=== PATIENT | female | born 1985 | race Caucasian/White ===

== ENCOUNTER 2018-07-10 13:55 | Inpatient (IN) | payer OTHER ==
[~2018-07-10] VITALS: Ht 177.8 cm; Wt 88.6 kg
[2018-07-10] VITALS (42 sets, daily range): BP systolic 101–128; BP diastolic 56–85
[~2018-07-10 13:55] MED LIST: ACHYD1T PO; DOCU100C37 PO; IBP800T PO; IBUP-1780 PO; OXYC-465 PO; PREN1TAB39 PO; PRM25T PO; PROG200C6 VG
[2018-07-10] MEDS ORDERED: AMPICILLIN 2,000 MG/20 ML (IV USE) ONE (14:26)
[2018-07-10] MEDS ORDERED: BETAMETHASONE ACE/NA PHOS 6 MG/ML (CELESTONE SOLUSPAN) ONE (14:26)
[2018-07-10] MEDS ORDERED: NS (IVPB) 0 ML ONE (14:27)
[2018-07-10] MEDS ORDERED: NS (IVPB) 50 ML ONE (14:40)
[2018-07-10 14:42] LABS: BASOPHILS % (AUTO) 0 % (0-10); EOSINOPHILS # (AUTO) 0.1 10^3/uL (0.0-0.3); EOSINOPHILS % (AUTO) 1 % (0-10); HEMATOCRIT 35 % (35-52); HEMOGLOBIN 11.3 G/DL (11.5-16.0); LYMPHOCYTES # (AUTO) 2.1 X 10^3 (1.0-4.0); LYMPHOCYTES % (AUTO) 24 % (12-44); MEAN CORPUSCULAR HEMOGLOBIN 28 PG (25-34); MEAN CORPUSCULAR HGB CONC 33 G/DL (32-36); MEAN CORPUSCULAR VOLUME 85 FL (80-99); MEAN PLATELET VOLUME 11.2 FL (7.4-10.4); MONOCYTES # (AUTO) 0.8 X 10^3 (0.0-1.0); MONOCYTES % (AUTO) 10 % (0-12); NEUTROPHILS # (AUTO) 5.7 X 10^3 (1.8-7.8); NEUTROPHILS % (AUTO) 66 % (42-75); PLATELET COUNT 185 10^3/uL (130-400); RED BLOOD COUNT 4.07 10^6/uL (4.35-5.85); RED CELL DISTRIBUTION WIDTH 13.9 % (10.0-14.5); WHITE BLOOD COUNT 8.7 10^3/uL (4.3-11.0)
[2018-07-10] MEDS ORDERED: AMPICILLIN FOR IV USE 2,000 MG in NS (IVPB) 50 ML IV ONE (14:45)
[2018-07-10] MEDS ORDERED: BETAMETHASONE ACE/NA PHOS 6 MG/ML (CELESTONE SOLUSPAN) IM ONE (14:45)
--- OUTSIDE RECORDS SUMMARY | 2018-07-10 14:46 | XMS REPORT | Continuity of Care Document ---
Demographics Preferred Language Unknown Marital Status Unknown Druze Affiliation Unknown Race Unknown Ethnic Group Unknown Author Author [facility] Address Unknown Phone Unavailable Allergies Active Description Code Type Severity Reaction Onset Reported/Identified Relationship to Patient Clinical Status Yes No Known Drug Allergies [id number] Drug Allergy Unknown N/A 09/27/2011 Medications There is no data. Problems Date Dx Coded Attending Type Code Diagnosis Diagnosed By 09/29/2011 Ot 641.21 ROSA ELENA SEPAR PLACEN-DELIV 09/29/2011 Ot 644.21 EARLY ONSET DELIVERY-DEL 09/29/2011 Ot 657.01 POLYHYDRAMNIOS,DEL W OR W/O MENTN ANTEPA 09/29/2011 Ot 660.41 SHOULDER DYSTOCIA-DELIV 09/29/2011 Ot V06.1 DIPHTHERIA- TETANUS-PERTUSSIS, COMBINED [ 09/29/2011 Ot V27.0 DELIVER- SINGLE LIVEBORN 08/13/2012 V04.81 FLU DX (3 YRS AND ABOVE, IM) 08/18/2012 Ot 276.50 VOLUME DEPLETION, UNSPECIFIED 08/18/2012 Ot 558.9 NONINF GASTROENTERIT NEC 08/18/2012 Ot 787.03 VOMITING ALONE 06/16/2013 SHANNA MARIEE MD Ot 641.21 ROSA ELENA SEPAR PLACEN-DELIV 06/16/2013 SHANNA MARIEE MD Ot 644.21 EARLY ONSET DELIVERY-DEL 06/16/2013 SHANNA MARIEE MD Ot V27.0 DELIVER-SINGLE LIVEBORN 03/20/2016 Ot 786.50 CHEST PAIN NOS 03/21/2016 SHANNA MARIEE MD Ot O60.03 LABOR WITHOUT DELIVERY, THIRD TR 03/21/2016 SHANNA MARIEE MD, Ot Z3A.34 34 WEEKS GESTATION OF 03/21/2016 Ot 786.50 CHEST PAIN NOS 03/21/2016 SHANNA MARIEE MD Ot O47.9 FALSE LABOR, UNSPECIFIED 03/21/2016 SHANNA MARIEE MD, Ot Z3A.00 WEEKS OF GESTATION OF NOT SPEC 03/24/2016 Ot 786.50 CHEST PAIN NOS 03/24/2016 SHANNA MARIEE MD, Ot O60.03 LABOR WITHOUT DELIVERY, THIRD TR 03/24/2016 SHANNA MARIEE MD, Ot Z3A.35 35 WEEKS GESTATION OF 03/25/2016 SHANNA MARIEE MD, Ot O60.03 LABOR WITHOUT DELIVERY, THIRD TR 03/25/2016 SHANNA MARIEE MD, Ot Z3A.35 35 WEEKS GESTATION OF 04/05/2016 SHANNA MARIEE MD, Ot O60.14X0 LABOR THIRD TRI W DELIVE 04/05/2016 SHANNA MARIEE MD, Ot O99.820 STREPTOCOCCUS B CARRIER STATE COMPLICATI 04/05/2016 SHANNA MARIEE MD, Ot Z23 ENCOUNTER FOR IMMUNIZATION 04/05/2016 SHANNA MARIEE MD, Ot Z37.0 SINGLE LIVE 04/05/2016 SHANNA MARIEE MD, Ot Z3A.36 36 WEEKS GESTATION OF 04/06/2016 SHANNA MARIEE MD, Ot O60.03 LABOR WITHOUT DELIVERY, THIRD TR 04/06/2016 SHANNA MARIEE MD, Ot Z3A.34 34 WEEKS GESTATION OF 04/08/2016 Ot 786.50 CHEST PAIN NOS Procedures Code Description Performed By Performed On 72.1 09/27/2011 73.59 MANUAL ASSIST DELIV NEC 06/16/2013 [id number] 04/03/2016 Results Test Result Range Complete blood count (CBC) with automated white blood cell (WBC) differential - 04/03/16 03:45 Blood leukocytes automated count (number/volume) 10.4 10*3/uL 4.3-11.0 Blood erythrocytes automated count (number/volume) 4.11 10*6/uL 4.35-5.85 Venous blood hemoglobin measurement (mass/volume) 11.6 g/dL 11.5-16.0 Blood hematocrit (volume fraction) 35 % 35-52 Automated erythrocyte mean corpuscular volume 85 [foz_us] 80-99 Automated erythrocyte mean corpuscular hemoglobin (mass per erythrocyte) 28 pg 25-34 Automated erythrocyte mean corpuscular hemoglobin concentration measurement ( mass/volume) 33 g/dL 32-36 Automated erythrocyte distribution width ratio 14.2 % 10.0-14.5 Automated blood platelet count (count/volume) 184 10*3/uL 130-400 Automated blood platelet mean volume measurement 11.0 [foz_us] 7.4-10.4 Automated blood neutrophils/100 leukocytes 66 % 42-75 Automated blood lymphocytes/100 leukocytes 24 % 12-44 Blood monocytes/100 leukocytes 10 % 0-12 Automated blood eosinophils/100 leukocytes 1 % 0-10 Automated blood basophils/100 leukocytes 0 % 0-10 Blood neutrophils automated count (number/volume) 6.8 10*3 1.8-7.8 Blood lymphocytes automated count (number/volume) 2.5 10*3 1.0-4.0 Blood monocytes automated count (number/volume) 1.0 10*3 0.0-1.0 Automated eosinophil count 0.1 10*3/uL 0.0-0.3 Automated blood basophil count (count/volume) 0.0 10*3/uL 0.0-0.1 Blood type T Indirect antibody screen panel - 04/03/16 03:45 ABO+Rh group AP NRG Transfusion band number [id number] [facility] Blood group antibody screen NEGATIVE [facility] Complete blood count (CBC) with automated white blood cell (WBC) differential - 07/10/18 14:17 Blood leukocytes automated count (number/volume) 8.7 10*3/uL 4.3-11.0 Blood erythrocytes automated count (number/volume) 4.07 10*6/uL 4.35-5.85 Venous blood hemoglobin measurement (mass/volume) 11.3 g/dL 11.5-16.0 Blood hematocrit (volume fraction) 35 % 35-52 Automated erythrocyte mean corpuscular volume 85 [foz_us] 80-99 Automated erythrocyte mean corpuscular hemoglobin (mass per erythrocyte) 28 pg 25-34 Automated erythrocyte mean corpuscular hemoglobin concentration measurement ( mass/volume) 33 g/dL 32-36 Automated erythrocyte distribution width ratio 13.9 % 10.0-14.5 Automated blood platelet count (count/volume) 185 10*3/uL 130-400 Automated blood platelet mean volume measurement 11.2 [foz_us] 7.4-10.4 Automated blood neutrophils/100 leukocytes 66 % 42-75 Automated blood lymphocytes/100 leukocytes 24 % 12-44 Blood monocytes/100 leukocytes 10 % 0-12 Automated blood eosinophils/100 leukocytes 1 % 0-10 Automated blood basophils/100 leukocytes 0 % 0-10 Blood neutrophils automated count (number/volume) 5.7 10*3 1.8-7.8 Blood lymphocytes automated count (number/volume) 2.1 10*3 1.0-4.0 Blood monocytes automated count (number/volume) 0.8 10*3 0.0-1.0 Automated eosinophil count 0.1 10*3/uL 0.0-0.3 Automated blood basophil count (count/volume) 0.0 10*3/uL 0.0-0.1 Encounters ACCT No. Visit Date/Time Discharge Status Pt. Type Provider Facility Loc./Unit Complaint [id number] 08/13/2012 11:10:00 08/13/2012 23:59:59 CLS Outpatient [id number] 08/13/2012 11:39:49 RECURRING [id number] 04/03/2016 03:05:00 04/05/2016 11:40:00 DIS Inpatient SHANNA MARIEE MD [facility] LDRP LABOR [id number] 03/24/2016 00:38:00 03/24/2016 08:22:00 DIS Outpatient SHANNA MARIEE MD [facility] WSo CONTRACTIONS [id number] 03/21/2016 22:11:00 03/21/2016 22:26:00 DIS [id number] 03/20/2016 18:00:00 03/21/2016 07:50:00 DIS Outpatient SHANNA MARIEE MD [facility] WSo CONTRACTIONS [id number] 06/15/2013 21:29:00 06/16/2013 11:40:00 DIS Inpatient SHANNA MARIEE MD [facility] WS LABOR [id number] 07/10/2018 14:43:00 Document Registration [id number] 08/18/2012 19:16:00 Document Registration [id number] 09/30/2011 12:26:00 Document Registration [id number] 09/27/2011 16:06:00 Document Registration
[2018-07-10] MEDS: D5 LR IV SOLUTION 1,000 ML IV SCH ×2 (14:50→18:55)
[2018-07-10] MEDS ORDERED: BUPIVACAINE 0.25% 30 ML (SENSORCAINE) VIAL ONE (14:55)
[2018-07-10] MEDS ORDERED: fentaNYL INJECTION 100 MCG/2 ML AMP ONE (14:55)
[2018-07-10] MEDS ORDERED: SUFENTA 0.6MCG/ML BUPIVA 0.125 100 ML ONE (14:58)
[2018-07-10] MEDS ORDERED: LACTATED RINGERS 1,000 ML IV ONE (15:22)
[2018-07-10] MEDS ORDERED: NALOXONE 0.4 MG/ML 1 ML (NARCAN) VIAL IV PRN (15:30)
[2018-07-10] MEDS ORDERED: CATHETER FLUSH 10 ML SYR IV PRN (15:30)
[2018-07-10] MEDS ORDERED: EPIDURAL (SUFENTA 0.6MCG/ML BUPIVA 0.125%) 100 ML BAG EPI SCH (15:30)
[2018-07-10] MEDS ORDERED: OXYTOCIN/NORMAL SALINE 500 ML IV SCH ×2 (18:04→22:46)
[2018-07-10] MEDS ORDERED: AMPICILLIN FOR IV USE 1,000 MG in NS (IVPB) 50 ML IV SCH (19:00)
[2018-07-10] MEDS ORDERED: OXYC1TAB87 PO (20:52)
[2018-07-10] MEDS ORDERED: IBUP-1780 PO (20:52)
[2018-07-10] MEDS ORDERED: DOCU100C37 PO (20:52)
--- NOTE | 2018-07-10 20:53 | Discharge Instructions ---
Discharge Instructions Discharge Medications New, Converted or Re-Newed RX: RX on Chart Patient Instructions Patient Instructions: as directed Return to The Hospital For: As directed Activity & Diet Discharge Diet: No Restrictions Activity as Tolerated: No Orders-Post D/C & Referrals Follow Up Appt: Call to make follow up appt. for patient in 4 weeks. Activity Per routine post vaginal delivery instructions. Diet as tolerated Patient may shower or tub bathe as desired. SHANNA MARIEE MD Jul 10, 2018 8:53 pm
--- NOTE | 2018-07-10 20:57 | History & Physical ---
History and Physical Date Seen by Provider: Jul 10, 2018 Time Seen by Provider: 17:00 This patient is a 32-year-old white female with a due date of putting her at 35-6/7 weeks' gestation. She presented to clinic with complaint of contractions pain and pressure. She was found to be dilated 5 cm and swapnil every 2-3 minutes. She has a history of deliveries 3 with none of her pregnancies making it beyond 36 weeks gestation. She has a history of rapid labors. She was sent to labor and delivery for management. A GBS culture done on July 04, 2018 was negative. Allergies are none Medications are vitamins and Prometrium/Crinone Medical surgical social family and obstetric histories are per the antepartum record HEENT exam is normal Neck is supple no lymphadenopathy and no thyromegaly Abdomen is gravid soft nontender nondistended Extreme show clubbing or cyanosis. There is no Homans sign. Pelvic exam in clinic showed a cervix 5+ and Ms. dilated -2 station vertex presentation effaced 50 percent or more monitor in my clinic showed contractions every 2-3 minutes with a normal heart rate pattern Laboratory Tests 07/10/18 14:17 Assessment and plan labor at 36 weeks' gestation in a patient with a history of rapid labors and 3 previous deliveries. In spite of her GBS negative culture she was started empirically on ampicillin. She was given a single dose of betamethasone 12 mg IM due to her labor. Anticipation is for vaginal delivery. labor at 36 weeks gestation Allergies and Home Medications Allergies Coded Allergies: No Known Drug Allergies (Unverified , 09/27/11) Home Medications Docusate Sodium 100 Mg Capsule, 100 MG PO BID Prescribed by: SHANNA CRUZ on 07/10/182051 Ibuprofen 800 Mg Tablet, 800 MG PO Q6H Prescribed by: SHANNA CRUZ on 07/10/182051 Oxycodone HCl/Acetaminophen 1 Each Tablet, 1-2 TAB PO Q6H PRN for PAIN Prescribed by: SHANNA CRUZ on 04/04/16 1038 Oxycodone HCl/Acetaminophen 1 Each Tablet, 1 EACH PO Q4H PRN for PAIN-MODERATE Prescribed by: SHANNA CRUZ on 07/10/182051 Vits W-Ca,Fe,Fa(<1MG) 1 Each Tablet, 1 EACH PO DAILY, (Reported) Patient Home Medication List Home Medication List Reviewed: Yes Clinical Quality Measures DVT/VTE Risk/Contraindication: Risk Factor Score Per Nursin RFS Level Per Nursing on Admit: 1=Low/No VTE PPX SHANNA MARIEE MD Jul 10, 2018 8:57 pm
[2018-07-10] MEDS ORDERED: LIDOCAINE/EPI 2% 1:200,00 (XYLOCAINE) 10 ML VIAL ONE (21:35)
[2018-07-10] MEDS ORDERED: CATHETER FLUSH 10 ML SYR IV SCH (22:00)
[2018-07-10] MEDS: KETOROLAC 30 MG/ML VIAL IV SCH (22:59)
[2018-07-10] MEDS ORDERED: TETANUS,DIPTH,PERTUSS P/F (BOOSTRIX) 0.5 ML VIAL IM ONE (23:00)
[2018-07-10] MEDS ORDERED: oxyCODONE/APAP 5/325MG (PERCOCET 5) TABLET PO PRN (23:00)
[2018-07-10] MEDS ORDERED: BENZOCAINE/MENTHOL (DERMOPLAST) 56 ML CAN TP PRN (23:00)
[2018-07-10] MEDS ORDERED: ONDANSETRON 4 MG/2 ML (SDV) Z0FRAN IVP PRN (23:00)
[2018-07-11 04:00] VITALS: BP 110/66
--- NOTE | 2018-07-11 04:07 | OPERATIVE REPORT ---
DATE OF SERVICE: 07/10/2018 DELIVERY NOTE The patient delivered by spontaneous vaginal delivery a viable female with Apgars of 6, 7 and 8 at 1, 5 AND 10 minutes respectively, blood gas pH of 7.28, weight of 7 lbs. 14 oz. time is 2142. Infant delivered over an intact perineum with less than 3 pushes. There was a shoulder cord. It was easily slipped over the shoulder. The infant was bulb suctioned on delivery of the head and again on completion of delivery. Umbilical cord was doubly clamped and father cut the cord. The baby was passed to mom's abdomen and then taken shortly to the warmer for resuscitation. The placenta delivered fairly promptly spontaneously [place]. It was a battledore placenta with a 3-vessel cord. The placenta was sent to pathology for permanent section. The cervix, vagina, rectum and perineum were examined and found intact. Estimated blood loss for the delivery was around 150 to 200 mL. The patient tolerated the delivery well and recovered in the LDR. The baby remained in the LDR for recovery with the mom. Job ID: [id number] DocumentID: [id number] Dictated Date: 07/10/2018 21:59:56 Flight Follower Date: 07/11/2018 04:06:15 Dictated By: SHANNA MARIEE MD MTDD
[2018-07-11] MEDS: KETOROLAC 30 MG/ML VIAL IV SCH (05:56)
--- NOTE | 2018-07-11 06:54 | Anesthesia-Regional Post-Op ---
Regional Patient Condition Mental Status: Alert, Oriented x3 Circulation: Same as Pre-Op Headache: Absent Sensation: Full Recovery Motor Block: Absent Post Op Complications Complications None Follow Up Care/Instructions Patient Instructions None needed. Anesthesia/Patient Condition Patient is doing well, no complaints, stable vital signs, no apparent adverse anesthesia problems. No complications reported per nursing. D/C home per [facility] Criteria: Yes LUKE JAIME CRNA Jul 11, 2018 06:54
[2018-07-11] MEDS: DOCUSATE SODIUM 100 MG (COLACE) CAP PO SCH ×2 (07:52→20:44)
[2018-07-11 07:54] VITALS: BP 117/68
--- NOTE | 2018-07-11 08:00 | Progress Note-Standard ---
Standard Progress Note Progress Notes/Assess & Plan Date Seen by a Provider: Jul 11, 2018 Time Seen by a Provider: 07:59 Progress/Assessment & Plan This patient is without complaint. She is ambulating, voiding, tolerating oral intake well, patient has good pain control. Patient denies headache, denies shortness of breath, denies nausea vomiting, denies chest pain. Vital signs are stable. Patient is afebrile. Vital Signs 07/11/18 04:00 Temp 98.7 Pulse 60 Resp 16 B/P (MAP) 110/66 (81) Pulse Ox 97 O2 Delivery Room Air Fundus is firm below the umbilicus and nontender. Extremities show no clubbing cyanosis. There is no Homans sign. Assessment and plan day number 1 status post spontaneous vaginal delivery at 36 weeks gestation. Patient is doing well. Plan is for routine convalescence care today and likely discharge tomorrow SHANNA MARIEE MD Jul 11, 2018 8:00 am
[2018-07-11 11:31] VITALS: BP 114/70
[2018-07-11] MEDS ORDERED: IBUPROFEN 800 MG (MOTRIN) TAB PO ONE ×2 (12:37→18:34)
[2018-07-11 16:00] VITALS: BP 112/69
[2018-07-11 20:40] VITALS: BP 105/61
[2018-07-11] MEDS: IBUPROFEN 800 MG (MOTRIN) TAB PO SCH (23:53)
[2018-07-12 02:15] VITALS: BP 107/63
[2018-07-12] MEDS: IBUPROFEN 800 MG (MOTRIN) TAB PO SCH ×2 (05:39→13:10)
--- NOTE | 2018-07-12 07:53 | Progress Note-Standard ---
Standard Progress Note Progress Notes/Assess & Plan Date Seen by a Provider: Jul 12, 2018 Time Seen by a Provider: 07:52 Progress/Assessment & Plan This patient is without complaint. She is ambulating, voiding, tolerating oral intake well, patient has good pain control. Patient denies headache, denies shortness of breath, denies nausea vomiting, denies chest pain. Vital signs are stable. Patient is afebrile. Vital Signs 07/11/18 04:00 Temp 98.7 Pulse 60 Resp 16 B/P (MAP) 110/66 (81) Pulse Ox 97 O2 Delivery Room Air Fundus is firm below the umbilicus and nontender. Extremities show no clubbing cyanosis. There is no Homans sign. Assessment and plan day number 1 status post spontaneous vaginal delivery at 36 weeks gestation. Patient is doing well. Plan is for routine convalescence care today and likely discharge tomorrow July 12, 2018 Patient is without complaint. She is ambulating, voiding, tolerating oral intake well has good pain control. Patient is ready for discharge. Vital Signs 07/12/18 02:15 Temp 96.7 Pulse 76 Resp 16 B/P (MAP) 107/63 (78) Pulse Ox 96 O2 Delivery Room Air Vital signs are stable. Patient is afebrile. Fundus is firm below the umbilicus and nontender. Extremities show no clubbing cyanosis. There is no Homans sign. Assessment and plan day number 2 status post spontaneous vaginal delivery at 36 weeks gestation. Plan is for discharge home with follow- up in clinic. If baby is not released then patient may room in Final Diagnosis spontaneous vaginal delivery at 36 weeks gestation SHANNA MARIEE MD Jul 12, 2018 7:53 am
[2018-07-12 13:06] VITALS: BP 115/81
[2018-07-12] MEDS: DOCUSATE SODIUM 100 MG (COLACE) CAP PO SCH (13:10)
[2018-07-12] MEDS ORDERED: TETANUS,DIPTH,PERTUSS P/F (BOOSTRIX) 0.5 ML VIAL IM ONE (14:33)
== END 2018-07-12 14:50 | disposition home or self-care (01) | DRG 807 ==
LOC: LDRP 13:55
PROVIDERS: ADMIT Obstetrics & Gynecology; ATTEND Obstetrics & Gynecology
PROC: 10E0XZZ Delivery of Products of Conception, External Approach (ICD-10-PCS; principal; 2018-07-10)
DX: O60.14X0 Preterm labor third trimester with preterm delivery third trimester, not applicable or unspecified (principal); O69.2XX0 Labor and delivery complicated by other cord entanglement, with compression, not applicable or unspecified; O43.193 Other malformation of placenta, third trimester; Z3A.36 36 weeks gestation of pregnancy; Z37.0 Single live birth; Z23 Encounter for immunization
CPT/HCPCS: 36415; 82962; 85025; 86850; 86900; 86901; 88307; 90715

== ENCOUNTER → 2020-12-25 | Outpatient (CLI) | payer BC, OTHER ==
[~2020-12-25] MED LIST changes: -OXYC-465 PO; +OXYC-556 PO; +OXYC1TAB87 PO; +PROG200C10 VG; -PROG200C6 VG
--- NOTE | 2020-12-25 12:20 | Diagnostic Imaging Report ---
INDICATION: Routine screening. No prior mammograms are available for comparison. This a baseline study. 2-D and 3-D bilateral screening mammography was performed with CAD. No mass or malignant appearing microcalcifications are identified. There are benign calcifications present. Axillae are unremarkable. IMPRESSION: BI-RADS Category 2 No mammographic features suspicious for malignancy are identified. ACR BI-RADS Category 2: Benign findings. Result letter will be mailed to the patient. Note: At least 10% of breast cancer is not imaged by mammography. Dictated by: Dictated on workstation # [id number]
== END ==
LOC: RAD 07:30
PROVIDERS: ATTEND Family Medicine
DX: Z12.31 Encounter for screening mammogram for malignant neoplasm of breast (principal)
CPT/HCPCS: 77063; 77067

== ENCOUNTER 2021-04-22 05:31 | Outpatient (CLI) | payer BC ==
[~2021-04-22] VITALS: Ht 177.8 cm; Wt 72.7 kg
== END 2021-04-22 10:24 | disposition home or self-care (01) ==
LOC: PREOP 05:31
PROVIDERS: ATTEND Obstetrics & Gynecology
DX: Z01.818 Encounter for other preprocedural examination (principal)

== ENCOUNTER 2021-04-29 11:39 | Day surgery (SDC) | payer BC ==
[2021-04-29] VITALS (10 sets, daily range): BP systolic 96–120; BP diastolic 59–78
[~2021-04-29] VITALS: Ht 177 cm; Wt 72.7 kg
[2021-04-29] MEDS ORDERED: ceFAZolin INJECTION 1,000 MG in WATER (STERILE) FOR INJECTION 10 ML IV ONE (11:45)
[2021-04-29] MEDS ORDERED: LACTATED RINGERS 1,000 ML IV PRN (11:45)
[2021-04-29] MEDS ORDERED: ESTRADIOL VAGINAL CREAM 42.5 GM (ESTRACE) VG ONE (11:46)
[2021-04-29] MEDS ORDERED: LIDOCAINE/EPI 1%-1:100,000 (XYLOCAINE) 20ML ONE (11:46)
[2021-04-29] MEDS ORDERED: ONDANSETRON 4 MG/2 ML (SDV) Z0FRAN ONE ×2 (12:10→17:08)
[2021-04-29] MEDS ORDERED: proPOfol 200 MG/20 ML (DIPRIVAN) VIAL IV ONE (12:10)
[2021-04-29] MEDS ORDERED: LIDOCAINE PF 2% 5 ML (XYLOCAINE) VIAL ONE (12:10)
[2021-04-29] MEDS ORDERED: fentaNYL INJ 100 MCG/2 ML AMP ONE ×2 (12:10→17:07)
[2021-04-29] MEDS ORDERED: MIDAZOLAM 2 MG/2 ML (VERSED) VIAL ONE (12:11)
[2021-04-29 12:29] LABS: BASOPHILS % (AUTO) 1 % (0-10); EOSINOPHILS # (AUTO) 0.1 10^3/uL (0.0-0.3); EOSINOPHILS % (AUTO) 2 % (0-10); HEMATOCRIT 38 % (35-52); HEMOGLOBIN 12.2 g/dL (11.5-16.0); LYMPHOCYTES # (AUTO) 1.6 10^3/uL (1.0-4.0); LYMPHOCYTES % (AUTO) 31 % (12-44); MEAN CORPUSCULAR HEMOGLOBIN 28 pg (25-34); MEAN CORPUSCULAR HGB CONC 32 g/dL (32-36); MEAN CORPUSCULAR VOLUME 86 fL (80-99); MEAN PLATELET VOLUME 10.4 fL (9.0-12.2); MONOCYTES # (AUTO) 0.4 10^3/uL (0.0-1.0); MONOCYTES % (AUTO) 8 % (0-12); NEUTROPHILS % (AUTO) 59 % (42-75); PLATELET COUNT 191 10^3/uL (130-400); WHITE BLOOD COUNT 5.2 10^3/uL (4.3-11.0)
[2021-04-29] MEDS ORDERED: NEOSTIGMINE 3 MG/3 ML VIAL ONE (14:13)
[2021-04-29] MEDS ORDERED: ROCURONIUM 10 MG/ML 5 ML SYRINGE IV ONE (14:13)
[2021-04-29] MEDS ORDERED: GLYCOPYRROLATE 0.2 MG/ML (ROBINUL) 2 ML VIAL ONE (14:13)
[2021-04-29] MEDS ORDERED: HYDROmorphone 2 MG/ML VIAL (DILAUDID) ONE (14:47)
[2021-04-29] MEDS ORDERED: SEVOFLURANE (ULTANE) 15 ML INHAL SOLN ONE (15:07)
[2021-04-29] MEDS ORDERED: KETOROLAC 30 MG/ML VIAL ONE ×2 (15:23→20:54)
[2021-04-29] MEDS ORDERED: morphine INJ 10 MG/ML 1ML (SYR OR VIAL) IVP ONE (15:45)
[2021-04-29] MEDS ORDERED: ONDANSETRON 4 MG/2 ML (SDV) Z0FRAN IVP PRN ×3 (15:45→16:00)
[2021-04-29] MEDS ORDERED: PROMETHAZINE INJ 25 MG/ML (PHENERGAN) AMP IVP ONE (15:45)
[2021-04-29] MEDS ORDERED: morphine INJ 10 MG/ML 1ML (SYR OR VIAL) ONE (15:48)
[2021-04-29] MEDS ORDERED: BENZOCAINE/MENTHOL (DERMOPLAST) 56 ML CAN TP PRN (16:00)
--- NOTE | 2021-04-29 16:02 | Progress Note-Pre Operative ---
Pre-Operative Progress Note H&P Reviewed The H&P was reviewed, patient examined and no changes noted. Date Seen by Provider: Apr 29, 2021 Time Seen by Provider: 13:00 Date H&P Reviewed: Apr 29, 2021 Time H&P Reviewed: 13:00 Pre-Operative Diagnosis: Menorrhagia/uterovaginal prolapse/stress urinary incontinence SHANNA MARIEE MD Apr 29, 2021 16:02
--- NOTE | 2021-04-29 16:03 | Progress Note-Post Operative ---
Post-Operative Progess Note Surgeon (s)/Count Room Clerk (s) Surgeon SHANNA MARIEE MD Count Room Clerk: Hailey Cummings Pre-Operative Diagnosis Menorrhagia/uterovaginal prolapse/stress urinary incontinence Post-Operative Diagnosis Same with pathology pending Procedure & Operative Findings Date of Procedure 04/29/21 Procedure Performed/Findings Total laparoscopic hysterectomy with bilateral salpingectomy as well as Anterior and posterior vaginal repairs with enterocele repair Anesthesia Type GETA Estimated Blood Loss Estimated blood loss (mL): 1 5 0 cc Specimens/Packing Specimens Removed Uterus and fallopian tubes Packing: Kerlix gauze in the vagina SHANNA MARIEE MD Apr 29, 2021 16:03
[2021-04-29] MEDS ORDERED: D5 LR IV SOLUTION 1,000 ML IV ONE ×2 (16:39→20:58)
[2021-04-29] MEDS: D5 LR IV SOLUTION 1,000 ML IV SCH ×2 (16:42→21:03)
[2021-04-29] MEDS: fentaNYL INJ 100 MCG/2 ML AMP IVP PRN (17:16)
--- NOTE | 2021-04-29 19:35 | OPERATIVE REPORT ---
DATE OF SERVICE: 04/29/2021 PREOPERATIVE DIAGNOSES: 1. Menorrhagia. 2. Uterovaginal prolapse and stress urinary incontinence. POSTOPERATIVE DIAGNOSES: 1. Menorrhagia. 2. Uterovaginal prolapse and stress urinary incontinence. OPERATIVE PROCEDURES: Total laparoscopic hysterectomy with bilateral salpingectomies as well as anterior and posterior vaginal repair with enterocele repair. OPERATIVE DESCRIPTION: With the patient in the supine position under satisfactory general anesthesia, she was repositioned in a dorsal lithotomy position in the [facility] and prepped and draped in the usual fashion for abdominal and vaginal surgery. Weighted speculum was placed in the posterior fornix of vagina, the cervix exposed and grasped anteriorly with single tooth tenaculum. Uterus was sounded to 13 cm with uterine sound. The cervix was inserted, dilated with Jose Alejandro dilators to accommodate a Alicia II manipulator, which was placed using a 6 mm x 8 cm uterine probe and a 35 mm colpotomy ring. Sutures of #1 Vicryl were placed at 3 and 9 o'clock positions of the cervix to affix the uterus to the manipulator. Donnelly catheter was placed in the urinary bladder. Tenaculum and speculum were removed. The patient was brought in low dorsal lithotomy position. A 12 mm incision was made 10 cm superior to the umbilicus. Veress needle was placed through that incision into the abdominal cavity and correct placement confirmed with water drop test. The abdomen was insufflated with 2.4 liters of carbon dioxide and the Veress needle was removed and a 12 mm Optiview laparoscopic port placed. The abdominal wall was transilluminated and 8 mm ports were placed through incisions size was placed 8 cm lateral to the umbilicus at a level about 3 cm above the umbilicus. All three port sites were infiltrated with 1% lidocaine with epinephrine prior to incision. The patient was placed in a Trendelenburg allowing the bowel spill out of the pelvis and the da Jordi column was advanced on the patient, docked and operative instrument placed in right and left lateral ports and I retired to the da Jordi console. At the console using a vessel sealer on the right and a bipolar fenestrated grasper on the left, the pelvis was first examined. The appendix was identified. It was a normal vermiform appendix. It was left in situ. Both ovaries were normal. The left ovary had several follicular cysts, which would be normal. The uterus was large, bulky and mottled in appearance consistent with adenomyosis. The fallopian tubes were normal in appearance. There was no significant abnormal pathology in the pelvis. The patient did appear to have some endometriosis, particularly in the left ovarian fossae. Attention was turned to the right fallopian tube, which was grasped and elevated. The vessel sealer was used to clamp, cauterize and divide the mesosalpinx across to the uteroovarian pedicle, which was then clamped, cauterized and divided across the round ligament down the broad ligament down to the cardinal ligament. The right ureter was seemed peristalsing well away from the areas of dissection. The same procedure was performed on the left, again identifying the ureter medial to the IP ligament on the left. The anterior lower uterine segment peritoneum was then exposed and divided and the bladder dissected down off the lower uterine segment, exposing the anterior vaginal wall over the colpotomy ring. Colpotomy incision was started at 12 o'clock position onto that ring. The incision was continued circumferentially until the entire colpotomy ring was exposed and then the uterus with fallopian tubes still attached was extracted through the vagina. The vaginal cuff was closed with a single suture of V-Loc barbed suture starting from the left angle and continuing all the way across the right angle and then using the last couple of stitches to reapproximate the bladder peritoneum down on to the vaginal cuff. Care was taken to ensure inclusion of the uterine vessel pedicles in the angle stitches of the vaginal closure. Hemostasis was complete. Good reapproximation was evident. No abnormal pathology remaining. The procedure at this point was terminated. The operative instruments were removed under direct vision as were the ports. The patient was brought out of Trendelenburg as the abdomen was evacuated of the insufflating gas. The skin incisions were closed with argelia after closing the fascia at the supraumbilical incision with [id number]-[id number] suture of 2-0 Vicryl. The patient was now reapproximated in a dorsal lithotomy position for the vaginal portion of the surgery. Weighted speculum placed in the posterior fornix of vagina. The anterior vaginal wall was grasped with two Lucero clamps near the midline. The vaginal wall was opened in the midline with Metzenbaum scissors. That opening extended from approximately 1.5 cm from the urethral meatus to almost the apex of the vagina. The bladder wall was carefully dissected off of the muscularis of the vagina back to pubic rami bilaterally and then endopelvic fascia and bladder wall were plicated with 2-0 Vicryl sutures, elevating the bladder and lengthening the urethra. An additional suture was used to perform a Hailey plication for additional support of the urethra. Redundant anterior vaginal muscularis mucosa was removed sharply. The vaginal wall was closed with a running locked suture of 2-0 Vicryl. Hemostasis was complete and good support was evident. Posterior repair was then affected by placing Lucero clamps on the perineum and the hymenal ring at 5 and 7 o'clock positions, an inverted triangle of skin was removed from the perineal body in an upright triangle from the posterior vaginal floor. The rectovaginal space was entered sharply and dissected bluntly down to the apex of the vagina, where it was explored for an enterocele, it was small and it was reduced and a pursestring suture of 2-0 Vicryl was placed to obliterate the enterocele. Additional sutures of 2-0 Vicryl were used to obliterate the rectovaginal space and then additional sutures also of 2-0 Vicryl were used to restore the perineal body. Redundant posterior vaginal muscularis mucosa was removed sharply. The vaginal wall was then closed with a running locked suture of 3-0 Vicryl Rapide, that closure was continued past the hymenal ring down on the perineal body then back up the subcutaneous to the hymenal ring, where the suture was tied. Digital rectal exam confirmed no stricture or stenosis of the rectum and no sutures into or through the rectal mucosa. Hemostasis was complete. Sponge and needle counts were correct. The vagina was filled with Estrace vaginal cream and a pack of Kerlix gauze was placed. Donnelly catheter was left to dependent drainage and was draining clear yellow urine. Blood loss was estimated at 150 mL. The patient was now uneventfully awakened from her general anesthesia and transferred to recovery room in a stable condition. Job ID: [id number] DocumentID: [id number] Dictated Date: 04/29/2021 15:13:28 Sulky Driver Date: 04/29/2021 19:34:39 Dictated By: SHANNA MARIEE MD
[2021-04-29] MEDS: DOCUSATE SODIUM 100 MG (COLACE) CAP PO SCH (21:00)
[2021-04-29] MEDS: KETOROLAC 30 MG/ML VIAL IVP SCH (21:03)
[2021-04-30 00:58] VITALS: BP 116/71
[2021-04-30] MEDS: fentaNYL INJ 100 MCG/2 ML AMP IVP PRN (01:09)
[2021-04-30] MEDS: D5 LR IV SOLUTION 1,000 ML IV SCH (03:44)
[2021-04-30] MEDS: KETOROLAC 30 MG/ML VIAL IVP SCH (03:44)
[2021-04-30 05:05] VITALS: BP 111/63
--- NOTE | 2021-04-30 07:15 | Progress Note ---
Standard Progress Note Progress Notes/Assess & Plan Date Seen by a Provider: Apr 30, 2021 Time Seen by a Provider: 07:13 Progress/Assessment & Plan This patient is without complaint. She is ambulating, tolerating oral intake well and has good pain control. She has not voided since her catheter was removed about 1/2-hour ago. Patient denies headache, denies shortness of breath, denies chest pain, and denies nausea or vomiting. Vital Signs Date Time Temp Pulse Resp B/P (MAP) Pulse Ox O2 Delivery O2 Flow Rate FiO2 04/30/21 05:05 36.8 58 18 111/63 (79) 99 Room Air 04/30/21 00:58 36.8 58 18 116/71 (86) 98 Room Air 04/29/21 21:13 36.7 52 18 109/59 (76) 100 Room Air 04/29/21 17:30 36.6 59 16 108/59 (75) 98 Room Air 04/29/21 16:20 36.3 51 16 107/62 (77) 96 Room Air 04/29/21 16:13 Room Air 04/29/21 16:10 36.8 16 120/68 (85) 100 Room Air 04/29/21 16:00 16 117/69 (85) 99 Room Air 04/29/21 15:50 OxyMask 2 04/29/21 15:50 18 118/78 (91) 97 OxyMask 2 04/29/21 15:40 19 111/66 (81) 100 OxyMask 4 04/29/21 15:35 OxyMask 6 04/29/21 15:30 17 104/62 (76) 100 OxyMask 6 04/29/21 15:18 OxyMask 8 04/29/21 15:18 36.9 18 96/59 (71) 100 OxyMask 8 04/29/21 12:00 36.6 62 18 115/73 (87) 97 Room Air I & O 04/30/21 07:00 Intake Total 4010 ml Output Total 695 ml Balance 3315 ml Vital signs are stable. Patient is afebrile. The abdomen is benign Extremities show no clubbing or cyanosis. There is no Homans' sign. Assessment and plan Postoperative day #1 doing well. Plan is for routine convalescent care with discharge home when she demonstrates adequate bladder function Final Diagnosis Menorrhagia/uterovaginal prolapse/stress urinary incontinence SHANNA MARIEE MD Apr 30, 2021 07:15
--- NOTE | 2021-04-30 07:16 | Progress Note ---
Standard Progress Note Progress Notes/Assess & Plan Date Seen by a Provider: Apr 30, 2021 Time Seen by a Provider: 07:15 Progress/Assessment & Plan This patient is without complaint. She is ambulating, tolerating oral intake well and has good pain control. She has not voided since her catheter was removed about 1/2-hour ago. Patient denies headache, denies shortness of breath, denies chest pain, and denies nausea or vomiting. Vital Signs Date Time Temp Pulse Resp B/P (MAP) Pulse Ox O2 Delivery O2 Flow Rate FiO2 04/30/21 05:05 36.8 58 18 111/63 (79) 99 Room Air 04/30/21 00:58 36.8 58 18 116/71 (86) 98 Room Air 04/29/21 21:13 36.7 52 18 109/59 (76) 100 Room Air 04/29/21 17:30 36.6 59 16 108/59 (75) 98 Room Air 04/29/21 16:20 36.3 51 16 107/62 (77) 96 Room Air 04/29/21 16:13 Room Air 04/29/21 16:10 36.8 16 120/68 (85) 100 Room Air 04/29/21 16:00 16 117/69 (85) 99 Room Air 04/29/21 15:50 OxyMask 2 04/29/21 15:50 18 118/78 (91) 97 OxyMask 2 04/29/21 15:40 19 111/66 (81) 100 OxyMask 4 04/29/21 15:35 OxyMask 6 04/29/21 15:30 17 104/62 (76) 100 OxyMask 6 04/29/21 15:18 OxyMask 8 04/29/21 15:18 36.9 18 96/59 (71) 100 OxyMask 8 04/29/21 12:00 36.6 62 18 115/73 (87) 97 Room Air I & O 04/30/21 07:00 Intake Total 4010 ml Output Total 695 ml Balance 3315 ml Vital signs are stable. Patient is afebrile. The abdomen is benign Extremities show no clubbing or cyanosis. There is no Homans' sign. Assessment and plan Postoperative day #1 doing well. Plan is for routine convalescent care with discharge home when she demonstrates adequate bladder function April 30, 2021 This patient is without complaint. She is ambulating, voiding, tolerating oral intake well and has good pain control. Vital Signs Date Time Temp Pulse Resp B/P (MAP) Pulse Ox O2 Delivery O2 Flow Rate FiO2 04/30/21 05:05 36.8 58 18 111/63 (79) 99 Room Air 04/30/21 00:58 36.8 58 18 116/71 (86) 98 Room Air 04/29/21 21:13 36.7 52 18 109/59 (76) 100 Room Air 04/29/21 17:30 36.6 59 16 108/59 (75) 98 Room Air 04/29/21 16:20 36.3 51 16 107/62 (77) 96 Room Air 04/29/21 16:13 Room Air 04/29/21 16:10 36.8 16 120/68 (85) 100 Room Air 04/29/21 16:00 16 117/69 (85) 99 Room Air 04/29/21 15:50 OxyMask 2 04/29/21 15:50 18 118/78 (91) 97 OxyMask 2 04/29/21 15:40 19 111/66 (81) 100 OxyMask 4 04/29/21 15:35 OxyMask 6 04/29/21 15:30 17 104/62 (76) 100 OxyMask 6 04/29/21 15:18 OxyMask 8 04/29/21 15:18 36.9 18 96/59 (71) 100 OxyMask 8 04/29/21 12:00 36.6 62 18 115/73 (87) 97 Room Air I & O 04/30/21 07:00 Intake Total 4010 ml Output Total 695 ml Balance 3315 ml Vital signs are stable. Patient is afebrile. Fundus is firm below the umbilicus and nontender. The incision is clean dry intact. Extremities show no clubbing cyanosis. There is no Homans' sign. Assessment and plan Postoperative day #2 status post primary delivery at 39 weeks gestation. Plan is for discharge home with follow-up in clinic Final Diagnosis 39-week primary delivery SHANNA MARIEE MD Apr 30, 2021 07:16
[2021-04-30 08:00] VITALS: BP 105/68
[2021-04-30] MEDS: IBUPROFEN 800 MG (MOTRIN) TAB PO SCH ×2 (08:36→14:23)
[2021-04-30] MEDS: DOCUSATE SODIUM 100 MG (COLACE) CAP PO SCH (08:37)
[2021-04-30] MEDS: SIMETHICONE 80 MG (MYLICON) CHEW PO PRN ×2 (08:37→14:23)
[2021-04-30] MEDS ORDERED: DOCUSATE SODIUM 100 MG (COLACE) CAP PO SCH (09:00)
[2021-04-30] MEDS: oxyCODONE/APAP 5/325MG (PERCOCET 5) TABLET PO PRN ×2 (09:24→14:23)
[2021-04-30 12:30] VITALS: BP 116/75
[2021-04-30] MEDS ORDERED: IBUP-1780 PO (12:58)
[2021-04-30] MEDS ORDERED: OXYC1TAB87 PO (12:58)
[2021-04-30] MEDS ORDERED: DCS100C PO (12:58)
--- NOTE | 2021-04-30 13:13 | Discharge Inst-Surgical ---
Discharge Inst-Surgical Depart Medication/Instructions New, Converted or Re-Newed RX: Transmitted to Pharmacy Consults/Follow Up Patient Instructions: As directed Orders & Referrals Follow Up Appt: Return to clinic on Monday, May 03, 2021 at 9:30 AM for staple removal Call to make follow up appt. for patient in 4 weeks. Activity: Rest for 24 hours, than as tolerated. Wound Care: May remove Band-Aid tomorrow. Replace as desired. Keep incisions clean and dry. Wash daily with soap and water. Diet: As tolerated may shower or tub bathe as desired. No driving for 24 hours, no alcoholic beverages for 24 hours, and nothing per vagina (no tampons, douching, or intercourse) for 8 weeks. Patient to return to the clinic as soon as possible for: Temperature greater than 101F, Severe Pain, Foul discharge from incision or vagina, Excessive Bleeding (more than a period). Activity Activity as Tolerated: No Diet Discharge Diet: No Restrictions SHANNA MARIEE MD Apr 30, 2021 13:13
--- NOTE | 2021-04-30 13:59 | Anesthesia-General Post-Op ---
General Patient Condition Mental Status/LOC: Same as Preop Cardiovascular: Satisfactory Nausea/Vomiting: Absent Respiratory: Satisfactory Pain: Controlled Complications: Absent Post Op Complications Complications None Follow Up Care/Instructions Patient Instructions None needed. Anesthesia/Patient Condition Patient Condition Patient is doing well, no complaints, stable vital signs, no apparent adverse anesthesia problems. No complications reported per nursing. HEATHER MERCADO CRNA Apr 30, 2021 13:59
[2021-04-30 14:50] VITALS: BP 116/75
== END 2021-04-30 14:50 | disposition home or self-care (01) ==
LOC: SDC 11:39 → WS 16:18 → SDC 04-30 14:50
PROVIDERS: ATTEND Obstetrics & Gynecology
DX: N87.0 Mild cervical dysplasia (principal); N92.0 Excessive and frequent menstruation with regular cycle; N81.4 Uterovaginal prolapse, unspecified; N39.3 Stress incontinence (female) (male); N86 Erosion and ectropion of cervix uteri; N81.2 Incomplete uterovaginal prolapse; N89.8 Other specified noninflammatory disorders of vagina; Z79.899 Other long term (current) drug therapy
CPT/HCPCS: 36415; 84703; 85025; 86850; 86900; 86901; 87081

== ENCOUNTER 2021-05-11 20:33 | Emergency (ER) | payer BC ==
[~2021-05-11] VITALS: Ht 177.8 cm; Wt 73.4 kg
[~2021-05-11 20:33] MED LIST changes: +DCS100C PO
[2021-05-11] MEDS ORDERED: ONDANSETRON 4 MG/2 ML (SDV) Z0FRAN IVP ONE (21:15)
--- NOTE | 2021-05-11 21:16 | ED Abdominal Pain ---
General Chief Complaint: Post OP Complications/Pain Stated Complaint: POST OP, NEEDS CT PER DOCTOR HIG Source of Information: Patient Exam Limitations: No Limitations History of Present Illness Date Seen by Provider: May 11, 2021 Time Seen by Provider: 21:00 Initial Comments To ER with suprapubic abdominal pain and intermittent nausea. Patient had a laparoscopic hysterectomy with bilateral salpingectomy as well as anterior and posterior vaginal repair on 04/29/2021. She has been afebrile and with minimal pain. She states that she twitched during her sleep a few nights ago during a nightmare and since then has had some abdominal pain. No fevers or chills. She rates the abdominal pain at one out of 10, mild persistent vaginal bleeding that is no heavier than a menstrual period and intermittent nausea. Timing/Duration: 2-3 Days Severity/Quality: Moderate Location: Suprapubic Radiation: No Radiation Activities at Onset: None Associated Symptoms: No Fever/Chills; Nausea/Vomiting Allergies and Home Medications Allergies Coded Allergies: No Known Drug Allergies (Unverified , 09/27/11) Patient Home Medication List Home Medication List Reviewed: Yes Docusate Sodium (Dok) 100 Mg Capsule, 100 MG PO BID Prescribed by: SHANNA CRUZ on 04/30/21 1258 Ibuprofen (Ibuprofen) 800 Mg Tablet, 800 MG PO Q6HR Prescribed by: SHANNA CRUZ on 04/30/21 1258 Oxycodone HCl/Acetaminophen (Percocet 5-325 mg Tablet) 1 Each Tablet, 1 TAB PO Q4H PRN for PAIN-MODERATE (5-7) Prescribed by: SHANNA CRUZ on 04/30/21 1308 Review of Systems Review of Systems Constitutional: see HPI EENTM: No Symptoms Reported Respiratory: No Symptoms Reported Cardiovascular: No Symptoms Reported Gastrointestinal: See HPI, Abdominal Pain Genitourinary: No Symptoms Reported Musculoskeletal: no symptoms reported Skin: no symptoms reported Endocrine: No Symptoms Reported Past Hrrzhah-Ymhncs-Gjyxpk Hx Patient Social History Tobacco Use?: No Use of E-Cig and/or Vaping dev: No Substance use?: No Alcohol Use?: No Pt feels they are or have been: No Immunizations Up To Date Tetanus Booster (TDap): Unknown PED Vaccines UTD: Yes Influenza Vaccine Up-to-Date: No; Not Current Seasonal Allergies Seasonal Allergies: No Past Medical History Surgeries: Yes (bradley) Respiratory: No Currently Using CPAP: No Currently Using BIPAP: No Cardiac: No Neurological: No Reproductive Disorders: No Genitourinary: No Gastrointestinal: No Musculoskeletal: No Endocrine: No HEENT: No Loss of Vision: Denies Hearing Impairment: Denies Cancer: No Psychosocial: No Integumentary: No Blood Disorders: No Adverse Reaction/Blood Tranf: No Family Medical History Patient reports no known family medical history. Physical Exam Vital Signs Vital Signs - First Documented 05/11/21 20:50 Temp 36.1 Pulse 58 Resp 18 B/P (MAP) 123/89 (100) Pulse Ox 96 O2 Delivery Room Air Capillary Refill : Height/Weight/BMI Height: 5'10.00" Weight: 195lbs. 4.0oz. [id number]; 23.20 BMI Method: General Appearance: WD/WN, no apparent distress HEENT: PERRL/EOMI, normal ENT inspection Respiratory: no respiratory distress, no accessory muscle use Gastrointestinal: normal bowel sounds, soft, tenderness Extremities: normal range of motion, non-tender Neurologic/Psychiatric: alert, normal mood/affect, oriented x 3 Skin: normal color, warm/dry Progress/Results/Core Measures Results/Orders Lab Results Laboratory Tests Test 05/11/21 21:21 05/11/21 21:29 Range/Units White Blood Count 9.0 4.3-11.0 10^3/uL Red Blood Count 4.15 3.80-5.11 10^6/uL Hemoglobin 11.7 11.5-16.0 g/dL Hematocrit 36 35-52 % Mean Corpuscular Volume 86 80-99 fL Mean Corpuscular Hemoglobin 28 25-34 pg Mean Corpuscular Hemoglobin Concent 33 32-36 g/dL Red Cell Distribution Width 12.9 10.0-14.5 % Platelet Count 242 130-400 10^3/uL Mean Platelet Volume 10.4 9.0-12.2 fL Immature Granulocyte % (Auto) 0 % Neutrophils (%) (Auto) 60 42-75 % Lymphocytes (%) (Auto) 28 12-44 % Monocytes (%) (Auto) 7 0-12 % Eosinophils (%) (Auto) 4 0-10 % Basophils (%) (Auto) 1 0-10 % Neutrophils # (Auto) 5.4 1.8-7.8 10^3/uL Lymphocytes # (Auto) 2.5 1.0-4.0 10^3/uL Monocytes # (Auto) 0.7 0.0-1.0 10^3/uL Eosinophils # (Auto) 0.3 0.0-0.3 10^3/uL Basophils # (Auto) 0.1 0.0-0.1 10^3/uL Immature Granulocyte # (Auto) 0.0 0.0-0.1 10^3/uL Sodium Level 138 135-145 MMOL/L Potassium Level 3.7 3.6-5.0 MMOL/L Chloride Level 105 98-107 MMOL/L Carbon Dioxide Level 23 21-32 MMOL/L Anion Gap 10 5-14 MMOL/L Blood Urea Nitrogen 14 7-18 MG/DL Creatinine 0.77 0.60-1.30 MG/DL Estimat Glomerular Filtration Rate 84 BUN/Creatinine Ratio 18 Glucose Level 94 70-105 MG/DL Calcium Level 9.1 8.5-10.1 MG/DL Corrected Calcium 9.0 8.5-10.1 MG/DL Total Bilirubin 0.3 0.1-1.0 MG/DL Aspartate Amino Transf (AST/SGOT) 16 5-34 U/L Alanine Aminotransferase (ALT/SGPT) 12 0-55 U/L Alkaline Phosphatase 45 40-136 U/L Total Protein 7.2 6.4-8.2 GM/DL Albumin 4.1 3.2-4.5 GM/DL Urine Color YELLOW Urine Clarity SL CLOUDY Urine pH 6.0 5-9 Urine Specific [place] >=1.030 1.016-1.022 Urine Protein NEGATIVE NEGATIVE Urine Glucose (UA) NEGATIVE NEGATIVE Urine Ketones NEGATIVE NEGATIVE Urine Nitrite NEGATIVE NEGATIVE Urine Bilirubin NEGATIVE NEGATIVE Urine Urobilinogen 0.2 < = 1.0 MG/DL Urine Leukocyte Esterase 2+ H NEGATIVE Urine RBC (Auto) 3+ H NEGATIVE Urine RBC 10-25 H /HPF Urine WBC 5-10 H /HPF Urine Squamous Epithelial Cells 2-5 /HPF Urine Crystals NONE /LPF Urine Bacteria FEW H /HPF Urine Casts NONE /LPF Urine Mucus NEGATIVE /LPF Urine Culture Indicated YES My Orders Orders - REECE BAER DIABETES NURSE Cbc With Automated Diff (05/11/21 21:08) Comprehensive Metabolic Panel (05/11/21 21:08) Ed Iv/Invasive Line Start (05/11/21 21:08) Ua Culture If Indicated (05/11/21 21:08) Ct Abdomen/Pelvis W (05/11/21 21:08) Ondansetron Injection (Zofran Injectio (05/11/21 21:15) Iohexol Injection (Omnipaque 350 Mg/Ml 1 (05/11/21 21:45) Received Contrast (Hold Metformin- Contr (05/11/21 21:45) Ns (Ivpb) (Sodium Chloride 0.9% Ivpb Bag (05/11/21 21:45) Urine Culture (05/11/21 21:29) Medications Given in ED Current Medications Medications Dose Ordered Sig/Joce Route Start Time Stop Time Status Last Admin Dose Admin Iohexol 100 ml ONCE ONCE IV 05/11/21 21:45 05/11/21 21:46 DC 05/11/21 21:37 75 ML Sodium Chloride 100 ml ONCE ONCE IV 05/11/21 21:45 05/11/21 21:46 DC 05/11/21 21:37 80 ML Vital Signs/I&O 05/11/21 20:50 Temp 36.1 Pulse 58 Resp 18 B/P (MAP) 123/89 (100) Pulse Ox 96 O2 Delivery Room Air Departure Communication (Admissions) Discussed with Dr. Amato, has no additional concerns, he will follow up with the patient out patient. States that the cyst was not present during surgery and that could be contributing to some of her symptoms. Impression Primary Impression: Postoperative abdominal pain Disposition: 01 HOME, SELF-CARE Condition: Stable Departure-Patient Inst. Decision time for Depature: 21:59 Referrals: JESIKA REA MD (PCP/Family) Primary Care Physician Patient Instructions: Postoperative Pain (DC) REECE BAER DIABETES NURSE May 11, 2021 21:16
[2021-05-11 21:24] LABS: BASOPHILS # (AUTO) 0.1 10^3/uL (0.0-0.1); BASOPHILS % (AUTO) 1 % (0-10); EOSINOPHILS # (AUTO) 0.3 10^3/uL (0.0-0.3); EOSINOPHILS % (AUTO) 4 % (0-10); HEMATOCRIT 36 % (35-52); HEMOGLOBIN 11.7 g/dL (11.5-16.0); LYMPHOCYTES # (AUTO) 2.5 10^3/uL (1.0-4.0); LYMPHOCYTES % (AUTO) 28 % (12-44); MEAN CORPUSCULAR HEMOGLOBIN 28 pg (25-34); MEAN CORPUSCULAR HGB CONC 33 g/dL (32-36); MEAN CORPUSCULAR VOLUME 86 fL (80-99); MEAN PLATELET VOLUME 10.4 fL (9.0-12.2); MONOCYTES # (AUTO) 0.7 10^3/uL (0.0-1.0); MONOCYTES % (AUTO) 7 % (0-12); NEUTROPHILS # (AUTO) 5.4 10^3/uL (1.8-7.8); NEUTROPHILS % (AUTO) 60 % (42-75); PLATELET COUNT 242 10^3/uL (130-400)
[2021-05-11 21:36] LABS: BILIRUBIN,URINE NEGATIVE (NEGATIVE); COLOR,URINE YELLOW; GLUCOSE, URINE (UA) NEGATIVE (NEGATIVE); KETONES,URINE NEGATIVE (NEGATIVE); LEUKOCYTE ESTERASE ,URINE 2+ (NEGATIVE); NITRITE,URINE NEGATIVE (NEGATIVE); PROTEIN,URINE NEGATIVE (NEGATIVE)
[2021-05-11 21:36] LABS: ALBUMIN 4.1 GM/DL (3.2-4.5); POTASSIUM 3.7 MMOL/L (3.6-5.0)
[2021-05-11 21:37] LABS: CALCIUM 9.1 MG/DL (8.5-10.1)
[2021-05-11 21:39] LABS: TOTAL PROTEIN 7.2 GM/DL (6.4-8.2)
[2021-05-11 21:40] LABS: BILIRUBIN,TOTAL 0.3 MG/DL (0.1-1.0)
[2021-05-11 21:42] LABS: CREATININE SERUM 0.77 MG/DL (0.60-1.30)
[2021-05-11 21:43] LABS: BACTERIA,URINE FEW /HPF; CLARITY,URINE SL CLOUDY
[2021-05-11] MEDS ORDERED: HOLD METFORMIN - RECEIVED CONTRAST 20 ML VIAL IV SCH (21:45)
[2021-05-11] MEDS ORDERED: IOHEXOL 350 MG/ML 100 ML (OMNIPAQUE 350) VIAL IV ONE (21:45)
[2021-05-11] MEDS ORDERED: NS 100 ML (IVPB) BAG IV ONE (21:45)
--- NOTE | 2021-05-11 21:55 | Diagnostic Imaging Report ---
CT ABDOMEN/PELVIS W TECHNIQUE: Multiple contiguous axial images were obtained through the abdomen and pelvis after administration of intravenous contrast. All CT scans use one or more of the following dose optimizing techniques: automated exposure control, MA and/or KvP adjustment based on patient size and exam type or iterative reconstruction. INDICATION: Lower abdominal pain, recent hysterectomy. COMPARISON: None available. FINDINGS: Lower chest: The lung bases are clear. No pericardial or pleural effusion. Peritoneum: Small volume of free air is present in the upper abdomen under the diaphragm. No inflammatory stranding within the mesentery. No loculated fluid collection that would indicate abscess. Liver and biliary system: The liver is normal. The gallbladder is normal. No biliary duct dilation. Spleen and Pancreas: Spleen is normal. The pancreas enhances normally without mass lesion or peripancreatic inflammatory changes. Adrenals: Normal. tract: The kidneys enhance normally without suspicious mass or obstruction. Urinary bladder is distended without wall thickening. No renal or ureteral stones. Hysterectomy. Dominant left ovarian cystic structure measures 3.4 x 4.3 cm. GI tract: Stomach is decompressed. No bowel obstruction. No pericolonic inflammatory changes. Normal appendix. Vasculature and Lymph nodes: Normal caliber aorta. No abdominal or pelvic lymphadenopathy. Musculoskeletal: No concerning osseous lesion. IMPRESSION: 1. Small volume of free intraperitoneal air under the diaphragm is most likely due to recent surgery. There are no sites identified within the bowel that would suggest potential perforation. 2. Left ovarian cyst measures up to 4.3 cm. 3. No features of abscess. Dictated by: Dictated on workstation # [id number]
[2021-05-11] MEDS ORDERED: RX-ONDANSETRON 4 MG ODT (ZOFRAN) PPK #4 PO STA (22:10)
[2021-05-11 22:25] VITALS: BP 112/67
== END 2021-05-11 22:25 | disposition home or self-care (01) ==
LOC: EDUNIT# 20:33 → ER 20:36
DX: G89.18 Other acute postprocedural pain (principal); Z90.710 Acquired absence of both cervix and uterus; Z90.722 Acquired absence of ovaries, bilateral
CPT/HCPCS: 36415; 74177; 80053; 81000; 85025; 87088

== ENCOUNTER → 2021-12-28 | Outpatient (CLI) | payer BC ==
[~2021-12-28] MED LIST changes: -DCS100C PO; +DOCU-239 PO
== END ==
LOC: LABNPT 16:35
PROVIDERS: ATTEND Obstetrics & Gynecology
DX: Z12.39 Encounter for other screening for malignant neoplasm of breast (principal); R30.9 Painful micturition, unspecified
CPT/HCPCS: 84443; 87088

== ENCOUNTER → 2023-04-28 | Outpatient (CLI) | payer BC, OTHER ==
--- NOTE | 2023-04-28 12:17 | Diagnostic Imaging Report ---
INDICATION: Routine screening. Comparison is made with prior mammogram from 12/25/2020. 2-D and 3-D bilateral screening mammography was performed with CAD. Both breasts are heterogeneously dense, limiting the sensitivity of mammography. The parenchymal pattern is stable. No new mass or malignant-appearing microcalcifications are seen. Axillae are unremarkable. IMPRESSION: No mammographic features suspicious for malignancy are identified. ACR BI-RADS Category 1: Negative. Result letter will be mailed to the patient. Note: At least 10% of breast cancer is not imaged by mammography. BI-RADS Category 1 Dictated by: Dictated on workstation # [id number]
== END ==
LOC: RAD 07:12
PROVIDERS: ATTEND Nurse Practitioner
DX: Z12.31 Encounter for screening mammogram for malignant neoplasm of breast (principal)
CPT/HCPCS: 77063; 77067